=== PATIENT | female | born 1950 | race Caucasian/White ===

== ENCOUNTER 2020-04-27 02:21 | Outpatient (CLI) | payer MEDICARE, SELFPAY ==
[2020-04-27 18:39] LABS: SARS-CoV-2 RNA PCR Negative
== END 2020-04-27 02:22 | disposition home or self-care (01) ==
LOC: ANHCOVIDDT 02:22
PROVIDERS: PCP Family Medicine Sports Medicine; Visit Provider Student in an Organized Health Care Education/Training Program
DX: Z01.812 Encounter for preprocedural laboratory examination (principal); Z11.59 Encounter for screening for other viral diseases
CPT/HCPCS: 87635; C9803; U0003

== ENCOUNTER 2020-04-29 01:28 | Day surgery (SDC) | payer MEDICARE, SELFPAY ==
[2020-04-20 15:52] VITALS: BMI 44.0
--- NOTE | 2020-04-28 16:11 | PM.IMHP ---
H&P: HPI History of Present Illness Date/Time: 04/28/20 16:11 Patient is a 69yo woman presented to [facility] office in 03/2020 after noticing a quarter-sized blood clot on pad as well as a small amount of blood. She also reported a different type of lower back pain (she has a history of chronic back pain) around same time that she noticed blood. She also reports right sided lower abd/pelvic pain. Patient saw her PCP and a pelvic US was performed. Pelvic US showed ES measuring 10mm. Patient reported similar episode of spotting approx. 6 mo. ago. It was not, however, associated with pain and resolved, which is why patient did not seek further evaluation at that time. An in-office EMB was performed and showed a benign endometrial polyp. Patient still reporting a nagging sensation. Due to the thickness of the ES on ultrasound as well as persistent discomfort, discussed further evaluation with a hysteroscopy/D&C. Mother had history of cervical cancer at age 53. No family history of other [facility] cancers. 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, s/p repair Forgetfulness Hiatal hernia Hot flashes Hypercalcemia Hypertension Hypertrophic and atrophic condition of skin Osteoporosis Pelvic pain in female Postmenopausal Pseudophakia, left eye Reactive depression Restless leg syndrome Seborrheic keratoses Small vessel disease Stroke 05/21/2019 Tinnitus Transaminitis Tremor Urinary bladder incontinence Vaginal dryness Vaginal itching Vision abnormalities Surgical History Surgical History Cataract extraction status of left eye History of appendectomy History of appendectomy History of bladder surgery Bladder Sling History of cholecystectomy History of colonoscopy History of knee replacement (~2014) History of knee surgery History of tonsillectomy History of tubal ligation Family History Family History Mother , at 52 yr old Uterine cancer Father , at 43 yr old Myocardial infarct Sibling , MVA 2010 Heart disease Social History Social History Smoking packs per day: 1 Smoking cigarettes per day: 20.0 Years smoked: 34 Smoking pack-years: 34.00 Smoking status: Former smoker Smoking end date: 08/05/94 Additional smoking assessment comments: Smoked for 20 years Alcohol intake: never Substance use: never Additional living arrangements comments: - [facility] Gender identity (if verbalized by the patient): Female Spiritual care concerns: No Meds Home Medications and Allergies Home Medications Medication Instructions Recorded Confirmed Type aspirin 81 mg tablet,delayed 81 mg PO DAILY 08/12/19 04/20/20 History release atorvastatin 40 mg tablet 40 mg PO HS 08/12/19 04/20/20 History mirabegron 50 mg tablet,extended 50 mg PO DAILY 08/12/19 04/20/20 History release 24 hr omeprazole 40 mg capsule,delayed 40 mg PO QAM 08/12/19 04/20/20 History release sulindac 150 mg tablet 150 mg PO QAM 08/12/19 04/20/20 History albuterol sulfate 90 mcg/actuation 1 inhalation INHALATION ONCE PRN 04/20/20 04/20/20 History breath activated powder inhaler alprazolam 0.25 mg tablet 0.25 mg PO DAILY PRN 04/20/20 04/20/20 History blood sugar diagnostic #10 each 04/20/20 History furosemide 20 mg PO QAM 04/20/20
[2020-04-29 06:10] VITALS: BP 99/84; PULSE 67; RESP 18; TEMP 36.3; O2SAT 99
[2020-04-29 06:30] VITALS: BMI 44.8
[2020-04-29] MEDS: ACETAMINOPHEN 500 MG TABLET 1000 MG PO (06:33)
[2020-04-29] MEDS: LACTATED RINGERS 1,000 ML 30 ML IV CONT (06:44)
[2020-04-29 06:50] LABS: Glucose Point of Care 161 (65-105)
--- NOTE | 2020-04-29 06:56 | WPDANESEPPF ---
Anes - Initial Pre Proc Eval Procedure: Operation Date: 04/29/20 07:30 Proposed Procedures p Hysteroscopy, Dilation and Curettage, Possible Myosure - Vandana Wahl MD Date/Time: 04/29/20 06:56 Surgeon: Vandana Wahl MD Pre Op Diagnosis: post menopausal bleeding, cervical polyp Patient Data Age: 69 Gender: F Height: 4 ft 11 in Weight: 100.6 kg Last Vital Signs Temp 36.3 C L 04/29/20 06:10 Pulse 67 04/29/20 06:10 Resp 18 04/29/20 06:10 BP 99/84 L 04/29/20 06:10 Pulse Ox 99 04/29/20 06:10 Allergies Allergy/AdvReac Type Severity Reaction Status Date / Time ibuprofen AdvReac Other Verified 04/29/20 06:25 naproxen [From Naprosyn] AdvReac MOUTH SORES Verified 04/29/20 06:24 Home Medications Medication Instructions Recorded Confirmed Type aspirin 81 mg tablet,delayed 81 mg PO DAILY 08/12/19 04/29/20 History release atorvastatin 40 mg tablet 40 mg PO HS 08/12/19 04/29/20 History mirabegron 50 mg tablet,extended 50 mg PO DAILY 08/12/19 04/29/20 History release 24 hr omeprazole 40 mg capsule,delayed 40 mg PO QAM 08/12/19 04/29/20 History release sulindac 150 mg tablet 150 mg PO QAM 08/12/19 04/29/20 History albuterol sulfate 90 mcg/actuation 1 inhalation INHALATION ONCE PRN 04/20/20 04/29/20 History breath activated powder inhaler alprazolam 0.25 mg tablet 0.25 mg PO DAILY PRN 04/20/20 04/29/20 History blood sugar diagnostic #10 each 04/20/20 History furosemide 20 mg PO QAM 04/20/20 04/29/20 History hydrochlorothiazide 25 mg PO QAM 04/20/20 04/29/20 History ketorolac 1 drp OPHTHALMIC (EYE) TID 04/20/20 04/29/20 History lancets #50 each 04/20/20 History lisinopril 40 mg PO QAM 04/20/20 04/29/20 History metformin 500 mg tablet 500 mg PO BID tablet 04/20/20 04/29/20 History metoprolol tartrate 50 mg tablet 50 mg PO Q12H 04/20/20 04/29/20 History ofloxacin 1 drp OPHTHALMIC (EYE) DAILY 04/20/20 04/29/20 History prednisolone acetate 1 drp OPHTHALMIC (EYE) DAILY 04/20/20 04/29/20 History rivaroxaban 20 mg tablet 20 mg PO DAILY 04/20/20 04/29/20 History ropinirole 1 mg tablet 1 mg PO HS tablet 04/20/20 04/29/20 History tramadol 50 mg tablet 100 mg PO TID 04/20/20 04/29/20 History venlafaxine 37.5 mg PO HS 04/20/20 04/29/20 History venlafaxine 75 mg PO QAM 04/20/20 04/29/20 History Laboratory Tests 04/29/20 06:48 POC Capillary Glucose 161 mg/dl H mg/dl (65-105) Patient hx anesthesia problems: none Family hx anesthesia problems: none PMFSH Past Medical History Medical History Acid reflux Antral (maxillary) polyp Anxiety Anxiety disorder Barretts esophagus Depression Diabetes A1C=7.1 (07/03/19) Distention of artery Diverticulitis Diverticulosis Elevated random blood glucose level Fatty liver Female bladder prolapse 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, 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 vagina, s/p repair Forgetfulness Hiatal hernia Hot flashes Hypercalcemia Hypertension Hypertrophic and atrophic condition of skin Osteoporosis Pelvic pain in female Postmenopausal Pseudophakia, left eye Reactive depression Restless leg syndrome Seborrheic keratoses Small vessel disease Stroke 05/21/2019 Tinnitus Transaminitis Tremor Urinary bladder incontinence Vaginal dryness Vaginal itching Vision abnormalities Surgical History Surgical History Cataract extraction status of left eye History of appendectomy History of appendectomy History of bladder surgery Bladder Sling History of cholecystectomy History of colonoscopy History of knee replacement (~2014) History of knee surgery History of tonsillectomy History of tubal ligation Family History Family History Mother , at 52 yr old Uterine cancer Father , at 43 yr old Myocardial infarct Sibling Decea
--- NOTE | 2020-04-29 07:15 | WPDHPUPDATE1 ---
History and Physical Update Update Date/Time: 04/29/20 07:15 History and Physical has been reviewed, including an updated exam of the patient. There are NO changes in the patient's condition. Risks, benefits, and alternatives have been discussed and questions answered. Patient agrees to proceed with procedure.
--- NOTE | 2020-04-29 08:16 | PM.PROC ---
Procedure Note - Detailed Date of procedure: 04/29/20 Pre-op diagnosis: postmenopausal bleeding, endometrial polyp Post-op diagnosis: same Procedure performed: Hysteroscopy, dilation and curettage Description of procedure: The patient was taken to the operating room where she self-transferred to the operating room table. Patient was placed in the dorsal supine position. Anesthesia was administered and found to be adequate. The patient was repositioned in the dorsal lithotomy position with the use of Naseem stirrups. She was prepped and draped in the usual sterile fashion. A red rubber catheter was used to drain the bladder of 50 cc of concentrated urine. A bivalve speculum was inserted into the vagina. The cervix was visualized and the anterior lip of the cervix was grasped with a single-tooth tenaculum. A paracervical block with 1% plain lidocaine was performed. 5 cc of lidocaine was administered on either side. Due to the slight deviation of the uterus to the patient's right side and small degree of prolapse, the cervix tended to curve posteriorly. Therefore, the tenaculum was moved the posterior lip of the cervix for better traction and straightening. The cervix was serially dilated to accommodate a hysteroscope. The hysteroscope was advanced into the endometrial cavity and a general survey was performed. A wide horizontal band of tissue was visualized across the length of the cavity. Beneath this band, a small posterior endometrial polyp was visualized. Bilateral tubal ostia were visualized. Several pictures were taken. The hysteroscope was removed. A medium sized rigid curette was then introduced into the endometrial cavity. All quadrants of the uterus were explored and a minimal amount of tissue was obtained. The specimen was prepared to be sent to pathology for analysis. The tenaculum was removed. No bleeding was noted from the tenaculum puncture sites. The vagina was cleansed and dried. The speculum was removed. The remainder of the patient was also cleansed and dried. She was taken out of the dorsal lithotomy position and awakened from anesthesia without difficulty. She was transferred to the recovery room in stable condition. All sponge, lap, instrument counts were correct in the procedure. Anesthesia: MAC Surgeon: Vandana Wahl MD Estimated blood loss (mL): 5 IV fluids (mL): 500 Urine output (mL): 50 Drains: No Packing: No Pathology: yes (endometrial curettings) Complications: No immediate complications Condition: stable Disposition: same day Findings: Hysteroscopic fluid: 1250cc in/1200cc out Intraoperative findings: wide, thick horizontal band of tissue across endometrial cavity, small posterior endometrial polyp, rest of cavity appeared normal, bilateral tubal ostia visualized
[2020-04-29 08:26] VITALS: BP 126/68; PULSE 61; RESP 16; O2SAT 100
[2020-04-29 08:31] LABS: Glucose Point of Care 153 (65-105)
[2020-04-29 08:45] VITALS: BP 133/72; PULSE 61; RESP 16
[2020-04-29] MEDS: oxyCODONE HCL (*CRX) 5 MG TAB IR PO (08:48)
== END 2020-04-29 09:10 | disposition home or self-care (01) ==
PROVIDERS: PCP Family Medicine Sports Medicine; Visit Provider Student in an Organized Health Care Education/Training Program
PROC: 0U5B8ZZ Destruction of Endometrium, Via Natural or Artificial Opening Endoscopic (ICD-10-PCS; CPT 58563; principal; 2020-04-29 07:30)
DX: N95.0 Postmenopausal bleeding (principal); N84.0 Polyp of corpus uteri; I10 Essential (primary) hypertension; E11.9 Type 2 diabetes mellitus without complications; M81.0 Age-related osteoporosis without current pathological fracture; K76.0 Fatty (change of) liver, not elsewhere classified; F31.4 Bipolar disorder, current episode depressed, severe, without psychotic features; K21.9 Gastro-esophageal reflux disease without esophagitis; G25.81 Restless legs syndrome; Z86.73 Personal history of transient ischemic attack (TIA), and cerebral infarction without residual deficits; Z87.891 Personal history of nicotine dependence; E66.01 Morbid (severe) obesity due to excess calories; Z68.41 Body mass index [BMI] 40.0-44.9, adult; Z79.84 Long term (current) use of oral hypoglycemic drugs; Z79.82 Long term (current) use of aspirin
CPT/HCPCS: 58558; 88305; A9270; J2250; J2704; J3010; J7030; J7120